=== PATIENT | female | born 1995 | race Caucasian/White ===

== ENCOUNTER 2016-11-11 01:51 | Emergency (ER) | payer SELFPAY | END 2016-11-11 02:21 | disposition left against medical advice (07) | LOC: ER 01:53 | DX: Z53.21 Procedure and treatment not carried out due to patient leaving prior to being seen by health care provider (principal) ==

== ENCOUNTER 2023-09-11 18:29 | Emergency (ER) | payer SELFPAY ==
[~2023-09-11] VITALS: Ht 175.3 cm; Wt 127.0 kg
[2023-09-11 18:34] VITALS: TEMP 98.2; O2SAT 99
[2023-09-11] MEDS ORDERED: KETOROLAC 30MG/ML VIAL IM ONE (20:00)
[2023-09-11] MEDS ORDERED: DEXAMETHASONE 4MG/ML 1ML VIAL IM ONE (20:00)
[2023-09-11] MEDS ORDERED: IBUP-2029 MT (20:21)
[2023-09-11] MEDS ORDERED: AMOX-494 MT (20:21)
[2023-09-11] MEDS ORDERED: KETOROLAC 30MG/ML VIAL IM NR (21:45)
[2023-09-11] MEDS ORDERED: DEXAMETHASONE 4MG/ML 1ML VIAL IM NR (21:45)
[2023-09-11 21:49] VITALS: BP 144/69; PULSE 96; RESP 18
== END 2023-09-11 21:54 | disposition home or self-care (01) ==
LOC: ER 18:29
DX: J02.0 Streptococcal pharyngitis (principal)
CPT/HCPCS: 99284; 81025; 87430; 96372; J1100; J1885

== ENCOUNTER 2023-12-08 11:26 | Emergency (ER) | payer MEDICAID ==
[~2023-12-08] VITALS: Ht 175.3 cm; Wt 125.0 kg
[~2023-12-08 11:26] MED LIST: AMOX-494 MT; IBUP-2029 MT
[2023-12-08 11:35] VITALS: O2SAT 100
[2023-12-08] MEDS ORDERED: DEXAMETHASONE 0.5MG/5ML ORAL SYR PO ONE (12:00)
[2023-12-08] MEDS: AMOXICILLIN/POTASSIUM CLAVULANATE 875/125MG TAB PO ONE (12:09)
[2023-12-08] MEDS: DEXAMETHASONE 10 MG/ML VIAL PO NR (12:09)
[2023-12-08] MEDS: ACETAMINOPHEN 325MG TABLET PO ONE (12:09)
[2023-12-08] MEDS ORDERED: AMOX1TAB16 MT (12:28)
[2023-12-08 12:42] VITALS: BP 111/63; PULSE 85; RESP 20; TEMP 98.4
== END 2023-12-08 12:44 | disposition home or self-care (01) ==
LOC: ER 11:26
DX: K04.7 Periapical abscess without sinus (principal)
CPT/HCPCS: 99284; J1100; J8540